=== PATIENT | male | born 1960 | race Caucasian/White ===

== ENCOUNTER 2017-08-28 13:18 | Inpatient (IN) ==
[2017-08-28] MEDS ORDERED: Sod Chloride 0.9% Inj 1,000 ML IV.CONT SCH (14:00)
[2017-08-28] MEDS ORDERED: Labetalol HCl Inj 100 MG/20 ML Vial IV.PUSH ONE (14:00)
--- NOTE | 2017-08-28 14:11 | CT ---
EXAM DATE: 08/28/2017 2:05 PM EDT AGE/SEX: 57 years / Male INDICATIONS: STROKE ALERT. Left arm numbness. CLINICAL DATA: This is the patient's initial encounter. Patient reports that signs and symptoms have been present for 1 day and indicates a pain score of 0/10. MEDICAL/SURGICAL HISTORY: Hypertension. None. RADIATION DOSE: 37.45 CTDI (mGy) COMPARISON: No prior exams available for comparison. TECHNIQUE: CT of the head without contrast. Using automated exposure control and adjustment of the mA and/or kV according to patient size, radiation dose was kept as low as reasonably achievable to ob tain optimal diagnostic quality images. DICOM format image data is available electronically for revi ew and comparison. FINDINGS: Cerebrum: The ventricles are normal for age. No evidence of midline shift, mass lesion, hemorrhage or acute infarction. There is a focal low-attenuation area in right internal capsule region axial drea ge #19. There is a sellar low-attenuation area in the left internal capsule region on image #17. No e xtraaxial fluid collections are seen. Posterior Fossa: The cerebellum and brainstem are intact. The 4th ventricle is midline. The cerebe llopontine angle is unremarkable. Extracranial: The visualized portion of the orbits is intact. Skull: The calvaria is intact. No evidence of skull fracture. CONCLUSION: 1. No acute hemorrhage or mass effect. 2. Low attenuation areas which may represent areas of prior lacunar infarction or chronic small vess el ischemic change. Report was called by [Dr. Pineda to Dr. Ely at 1409 hours. ] Electronically signed by: Taurus Pineda MD 08/28/2017 2:10 PM EDT
[2017-08-28 14:22] LABS: Baso % (Auto) 0.6 % (0.0-2.0); Eos # (Auto) 0.1 th/mm3 (0.0-0.4); Eos % (Auto) 1.1 % (0.0-4.0); Hematocrit 44.4 % (39.0-51.0); Hemoglobin 15.5 gm/dL (13.0-17.0); Lymph # (Auto) 1.9 th/mm3 (1.0-4.8); Lymph % (Auto) 26.2 % (9.0-44.0); Mean Corpuscular HGB Conc 34.9 % (32.0-36.0); Mean Corpuscular Volume 94.4 fL (80.0-100.0); Mean Platelet Volume 8.5 fL (7.0-11.0); Mono # (Auto) 0.5 th/mm3 (0.0-0.9); Mono % (Auto) 7.3 % (0.0-8.0); Neut # (Auto) 4.6 th/mm3 (1.8-7.7); Neut % (Auto) 64.8 % (16.0-70.0); Platelet Count 290 th/mm3 (150-450); Red Cell Distribution Width 13.3 % (11.6-17.2); White Blood Count 7.2 th/mm3 (4.0-11.0)
[2017-08-28 14:29] LABS: Activated Partial Thrombo Time 26.8 sec (24.3-30.1); Prothrombin Time 10.1 sec (9.8-11.6)
--- NOTE | 2017-08-28 14:32 | CT ---
EXAM DATE: 08/28/2017 2:24 PM EDT AGE/SEX: 57 years / Male INDICATIONS: STROKE ALERT. Left side numbness. CLINICAL DATA: This is the patient's initial encounter. Patient reports that signs and symptoms have been present for 1 day and indicates a pain score of 0/10. MEDICAL/SURGICAL HISTORY: None. None. RADIATION DOSE: 28.60 CTDI (mGy) COMPARISON: [facility] [place], CT HEAD W/O CONTRAST, 08/28/2017. . TECHNIQUE: Volumetric scanning was performed using a multi-row detector CT scanner during bolus infu juany of 97 ml Visipaque 320 (iodixanol) nonionic water-soluble contrast as a single exam dose. The data was post processed with a variety of visualization algorithms including full volume maximum int ensity projection, multi-planar sliding thin slab reformation, curved planar reformation, and surface rendering techniques. Using automated exposure control and adjustment of the mA and/or kV according to patient size, radiation dose was kept as low as reasonably achievable to obtain optimal diagnosti c quality images. DICOM format image data is available electronically for review and comparison. FINDINGS: There is excellent visualization of the major intracranial arteries out to the second-order branch ve ssels. There is no evidence for aneurysm, vessel truncation or stenosis, and no evidence for vascula r malformation. CONCLUSION: 1. Negative study with no evidence of stenosis or occlusion. Electronically signed by: Taurus Pineda MD 08/28/2017 2:30 PM EDT
--- NOTE | 2017-08-28 14:32 | ED ---
HPI General Chief Complaint: Neuro Symptoms/Deficit Stated Complaint: Left Shoulder pain Time Seen by Provider: 08/28/17 13:56 Source: patient Mode of arrival: ambulatory Limitations: no limitations History of Present Illness HPI Narrative: Patient is a 57-year-old male, past medical history significant for hypertension but is not on any medicines, who presents with complaint of left arm numbness and tingling that began suddenly at approximately 1230 today. He states that it has improved since then but is still present. He denies facial droop, speech changes, difficulty swallowing, and weakness of the arms and legs. He does state that he had some difficulty walking at onset but that this has resolved. No vision changes. He denies chest pain, shortness of breath, fever, chills, cough. Onset (ago): hour(s) Time: 12:29 Location: left arm History of same: No Severity: moderate Quality: numb and tingling Relieving factors: time Exacerbating factors: none Context: sudden onset On Anticoagulants: No Associated symptoms: denies other symptoms Treatments Prior to Arrival: none Related Data Home Medications Medication Instructions Recorded Confirmed No Known Home Medications 08/28/17 08/28/17 Allergies Allergy/AdvReac Type Severity Reaction Status Date / Time No Known Allergies Allergy Unverified 08/28/17 13:56 Review of Systems Except as stated in HPI: all other systems reviewed are negative Constitutional Denies fever(s) Eyes Denies blurry vision ENT Denies change in voice and Denies dysphagia Cardiovascular Denies chest pain Respiratory Denies dyspnea Gastrointestinal Denies abdominal pain Genitourinary Denies dysuria Musculoskeletal Denies back pain Integumentary/Breasts Denies rash Neurologic Denies confusion, Denies frequent falls, Denies headache(s), Denies focal weakness, Denies loss of vision, Reports numbness and Reports tingling Psychiatric Reports anxiety PMFSH Medical History Medical History Patient denies medical problems (Acute) Surgical History Surgical History S/P LASIK surgery of both eyes (Acute) Social History Social History Substance History: No History of Abuse Smoking Status: Current some day smoker Tobacco Type: Cigars How Often Do You Have a Drink Containing Alcohol: 4 or more times a week Recent Travel in [email or web address] within the Last 8 Weeks: No Recent Out of Country Travel within the Last 8 Weeks: No Immunization History Tetanus Immunization: <5 Years Hx Influenza Vaccine This Season: Yes Exam Narrative Exam Narrative: GENERAL: Well-appearing male, no acute distress SKIN: Focused skin assessment warm/dry. HEAD: Atraumatic. Normocephalic. EYES: Pupils equal and round. No scleral icterus. No injection or drainage. ENT: No nasal bleeding or discharge. Mucous membranes pink and moist. NECK: Trachea midline. No JVD. CARDIOVASCULAR: Regular rate and rhythm. No murmur appreciated. RESPIRATORY: No accessory muscle use. Clear to auscultation. Breath sounds equal bilaterally. GASTROINTESTINAL: Abdomen soft, non-tender, nondistended. Hepatic and splenic margins not palpable. MUSCULOSKELETAL: No obvious deformities. No clubbing. No cyanosis. No edema. NEUROLOGICAL: Awake and alert. No facial droop. No obvious cranial nerve deficits. Motor grossly normal limits. Normal speech. Normal gait. No ataxia. States numbness of the left upper extremity when compared to the right but no other changes in sensation. PSYCHIATRIC: Appropriate mood and affect; insight and judgment normal. Course Hospital Course: Patient was placed on a school lunch monitor an IV was established. Last known well was approximately 1.5 hours prior to being seen thus a stroke alert is called. Reevaluation(s) Reevaluation #1: Patient has returned from CT and states that the numbness in his fingertips continues to improve. Time: 14:32 Consultations Consultation #1: I spoke to Dr. Johnson of neurology recommended CTAs. CTA is unremarkable as he recommended admission to the hospitalist for MRI and further TIA workup. Initial Documented Vital Signs Temperature 98.6 F 08/28/17 13:23 Pulse Rate 98 H 08/28/17 13:23 Respiratory Rate 18 08/28/17 13:23 Blood Pressure 186/114 H 08/28/17 13:23 Pulse Oximetry 99 08/28/17 13:23 Last Documented Vital Signs Temperature 98.6 F 08/28/17 13:23 Pulse Rate 82 08/28/17 13:45 Respiratory Rate 22 08/28/17 13:44 Blood Pressure 202/121 H 08/28/17 13:44 Pulse Oximetry 98 08/28/17 13:56 Critical Care Time Critical Care Time: Yes Total Critical Care Time: 30 Attestation: Aggregate critical care time was 30 minutes. Time to perform other separately billable procedures was not included in the critical care time. My time did not include minutes spent treating any other patients simultaneously or on activities that did not directly contribute to the patient's treatment. The services I provided to this patient were to treat and/or prevent clinically significant deterioration that could result in: , disability. I provided critical care services requiring my management, as noted below: Chart data review, documentation time, medication orders and management, vital sign assessments/reviewing monitor data, ordering and reviewing lab tests, ordering and interpreting/reviewing x-rays and diagnostic studies, care of the patient and discussion of the patient with the admitting physicians. NIH Stroke Scale NIH Stroke Scale Level of Consciousness: 0-Alert Orientation Questions: 0-Answers both correct Responds to Commands: 0-Both tasks correct Gaze Eye Movement: 0-Horizontal movement WNL Visual Guzmna: 0-No visual field defect Facial Movement: 0-Normal Motor Functions Arm LEFT: 0-No drift Motor Functions Arm RIGHT: 0-No drift Motor Functions Leg LEFT: 0-No drift Motor Functions Leg RIGHT: 0-No drift Limb Ataxia: 0-No ataxia Total: 0 Medical Decision Making MDM Narrative Medical decision making narrative: 7-year-old male who presents with complaint of numbness of the left upper extremity that began suddenly approximately 1.5 hours prior to arrival. Aldair liquid was activated on his arrival and noncontrast CT of his head did not reveal acute hemorrhage. His NIH stroke scale was only 1 and his symptoms were continuously improving thus it was decided that he should not receive TPA, as decided between the patient, myself, and Dr. Johnson, the neurologist prepared foods production team member. He was admitted to the hospitalist for an MRI and further workup for likely TIA. Differential Diagnosis Differential Diagnosis: Differential diagnosis includes but is not limited to acute cerebrovascular accident, transient ischemic attack, radiculopathy, anxiety. Medical Records Medical records reviewed: Yes I reviewed the patient's medical records. Lab Data Lab results reviewed: Yes I reviewed the patient's lab results. Lab results narrative: Labs reveal mild hypokalemia but otherwise unremarkable. Result diagrams: 08/28/17 14:02 08/28/17 14:02 Lab Results 08/28/17 08/28/17 08/28/17 Range/Units 14:02 14:02 14:02 WBC 7.2 (4.0-11.0) th/mm3 RBC 4.70 (4.50-5.90) mil/mm3 Hgb 15.5 (13.0-17.0) gm/dL POC Hgb (Calc) 14.6 (13.0-17.0) g/dL Hct 44.4 (39.0-51.0) % POC Hct 43.0 (39-51.0) % MCV 94.4 (80.0-100.0) fL MCH 33.0 (27.0-34.0) pg MCHC 34.9 (32.0-36.0) % RDW 13.3 (11.6-17.2) % Plt Count 290 (150-450) th/mm3 MPV 8.5 (7.0-11.0) fL Neut % (Auto) 64.8 (16.0-70.0) % Lymph % (Auto) 26.2 (9.0-44.0) % [place] % (Auto) 7.3 (0.0-8.0) % Eos % (Auto) 1.1 (0.0-4.0) % Baso % (Auto) 0.6 (0.0-2.0) % Neut # (Auto) 4.6 (1.8-7.7) th/mm3 Lymph # (Auto) 1.9 (1.0-4.8) th/mm3 [place] # (Auto) 0.5 (0.0-0.9) th/mm3 Eos # (Auto) 0.1 (0.0-0.4) th/mm3 Baso # (Auto) 0.0 (0.0-0.2) th/mm3 WBC Differential . Differential Comment Auto diff final PT 10.1 (9.8-11.6) sec INR 1.0 Ratio APTT 26.8 (24.3-30.1) sec POC Sodium 141 (137-144) mmol/L Sodium 141 (136-145) meq/L POC Potassium 3.4 L (3.6-5.0) mmol/L Potassium 3.4 L (3.5-5.1) meq/L POC Chloride 104 (102-111) mmol/L Chloride 108 H (98-107) meq/L Carbon Dioxide 25.8 (21.0-32.0) meq/L Anion Gap 7 (5-15) meq/L POC BUN 12 (5-21) mg/dL BUN 13 (7-18) mg/dL Creatinine 1.16 (0.60-1.30) mg/dL POC Creatinine 1.0 (0.6-1.3) mg/dL Estimated GFR 65 L (>89) mL/min POC Glucose 115 H (68-110) mg/dL Random Glucose 115 H (74-106) mg/dL Calcium 9.3 (8.5-10.1) mg/dL Total Creatine Kinase 183 (39-308) U/L CK-MB (CK-2) 1.0 (0.5-3.6) ng/mL Troponin I Less than 0.02 L (0.02-0.05) ng/mL Blood Type Blood Type Recheck Antibody Screen 08/28/17 08/28/17 Range/Units 14:02 14:37 WBC (4.0-11.0) th/mm3 RBC (4.50-5.90) mil/mm3 Hgb (13.0-17.0) gm/dL POC Hgb (Calc) (13.0-17.0) g/dL Hct (39.0-51.0) % POC Hct (39-51.0) % MCV (80.0-100.0) fL MCH (27.0-34.0) pg MCHC (32.0-36.0) % RDW (11.6-17.2) % Plt Count (150-450) th/mm3 MPV (7.0-11.0) fL Neut % (Auto) (16.0-70.0) % Lymph % (Auto) (9.0-44.0) % [place] % (Auto) (0.0-8.0) % Eos % (Auto) (0.0-4.0) % Baso % (Auto) (0.0-2.0) % Neut # (Auto) (1.8-7.7) th/mm3 Lymph # (Auto) (1.0-4.8) th/mm3 [place] # (Auto) (0.0-0.9) th/mm3 Eos # (Auto) (0.0-0.4) th/mm3 Baso # (Auto) (0.0-0.2) th/mm3 WBC Differential Differential Comment PT (9.8-11.6) sec INR Ratio APTT (24.3-30.1) sec POC Sodium (137-144) mmol/L Sodium (136-145) meq/L POC Potassium (3.6-5.0) mmol/L Potassium (3.5-5.1) meq/L POC Chloride (102-111) mmol/L Chloride (98-107) meq/L Carbon Dioxide (21.0-32.0) meq/L Anion Gap (5-15) meq/L POC BUN (5-21) mg/dL BUN (7-18) mg/dL Creatinine (0.60-1.30) mg/dL POC Creatinine (0.6-1.3) mg/dL Estimated GFR (>89) mL/min POC Glucose 100 (68-110) mg/dL Random Glucose (74-106) mg/dL Calcium (8.5-10.1) mg/dL Total Creatine Kinase (39-308) U/L CK-MB (CK-2) (0.5-3.6) ng/mL Troponin I (0.02-0.05) ng/mL Blood Type O Positive Blood Type Recheck Required Antibody Screen Negative Imaging Data Attestation: I personally reviewed and interpreted this imaging study as follows : My impression: Chest x-ray without acute cardiopulmonary process. CT head without large hemorrhage or mass-effect. Radiologist's impression: Head MRI 08/28/17 00:00 CONCLUSION: 1. Old tiny 3 mm focus of apparent restricted diffusion in the deep white matter of the left frontal lobe of concern for a small acute to subacute area of lacunar infarction. 2. Small old lacunar infarct in the deep white matter of the right parietal lobe. 3. Nonspecific white matter findings which could be related to chronic small vessel ischemic change. Chest X-Ray 08/28/17 13:56 CONCLUSION: Negative examination. Head CT 08/28/17 13:56 CONCLUSION: 1. No acute hemorrhage or mass effect. 2. Low attenuation areas which may represent areas of prior lacunar infarction or chronic small vessel ischemic change. Report was called by [Dr. Pineda to Dr. Ely at 1409 hours. ] Head CTA 08/28/17 13:56 CONCLUSION: 1. Negative study with no evidence of stenosis or occlusion. Neck CTA 08/28/17 13:56 CONCLUSION: 1. Mild bilateral plaquing in the carotid bulbs greater than right with less than 40% diameter stenosis. ECG Data EKG Prior to Arrival: No Attestation: I personally reviewed and interpreted this ECG as follows: (Sinus rhythm at a rate of 80 bpm. There is slight ST depression in lead II, lead V4 through V6.) Discharge Plan Discharge Disposition Patient Disposition: 30 Still Patient Discharge Condition Condition: Stable Discharge Details Diagnosis: Transient cerebral ischemia Physicians Team ED Provider: Erum Ely Primary Care Provider: UNKNOWN, Attending Provider: Jesse Stovall Other Providers: Andrew Johnson ED Status: Admitted Patient
[2017-08-28 14:36] LABS: Anion Gap 7 meq/L (5-15); Blood Urea Nitrogen 13 mg/dL (7-18); Calcium 9.3 mg/dL (8.5-10.1); Carbon Dioxide 25.8 meq/L (21.0-32.0); Chloride 108 meq/L (98-107); Glomerular Filtration Rate 65 mL/min (>89); Glucose,Random 115 mg/dL (74-106); Potassium 3.4 meq/L (3.5-5.1); Sodium 141 meq/L (136-145)
[2017-08-28 14:39] LABS: Creatine Kinase 183 U/L (39-308)
--- NOTE | 2017-08-28 15:11 | XR ---
EXAM DATE: 08/28/2017 2:59 PM EDT AGE/SEX: 57 years / Male INDICATIONS: . Stroke alert. Left sided numbness. CLINICAL DATA: This is the patient's initial encounter. Patient reports that signs and symptoms have been present for 1 day and indicates a pain score of 2/10. MEDICAL/SURGICAL HISTORY: None. None. COMPARISON: No prior exams available for comparison. FINDINGS: AP and lateral views of the chest demonstrate the lungs to be symmetrically aerated without evidence of mass, infiltrate or effusion. The cardiomediastinal contours are unremarkable. Osseous structure s are intact. CONCLUSION: Negative examination. Electronically signed by: Figueroa Mendez MD 08/28/2017 3:10 PM EDT
--- NOTE | 2017-08-28 15:13 | CT ---
EXAM DATE: 08/28/2017 2:35 PM EDT AGE/SEX: 57 years / Male INDICATIONS: STROKE ALERT. Left side numbness. CLINICAL DATA: This is the patient's initial encounter. Patient reports that signs and symptoms have been present for 1 day and indicates a pain score of 0/10. MEDICAL/SURGICAL HISTORY: None. None. RADIATION DOSE: 28.60 CTDI (mGy) COMPARISON: No prior exams available for comparison. TECHNIQUE: Volumetric scanning was performed using a multirow detector CT scanner during bolus infus ion of 97 ml Visipaque 320 (iodixanol) nonionic water-soluble contrast as a single exam dose. The data was postprocessed with a variety of visualization algorithms including full-volume maximum inten sity projection, multiplanar sliding thin-slab reformation, curved-planar reformation, and surface-re ndering techniques. Using automated exposure control and adjustment of the mA and/or kV according to patient size, radiation dose was kept as low as reasonably achievable to obtain optimal diagnostic q uality images. DICOM format image data is available electronically for review and comparison. FINDINGS: Aortic Arch: There is a three-vessel origin of the great vessels from the aorta. No evidence of ost ial narrowing Right Carotid: The common carotid artery is intact. The carotid bulb has a normal configuration wit h mild noncalcified and calcified plaque calcific plaque. There is minimal luminal narrowing. The int ernal carotid artery lumen is smooth without stenosis. The external carotid artery is intact. Left Carotid: The common carotid artery is intact. The carotid bulb has a normal configuration with mild to moderate calcific plaquing and mild luminal narrowing in the bulb and proximal internal ramirez tid artery. The internal carotid artery lumen is smooth without stenosis. The external carotid arter y is intact. Vertebrals: The vertebral arteries have a symmetric diameter. No stenotic lesions are seen. Elevated flow velocities and ICA/CCA ratios have been found to correlate with increased degrees of ve ssel stenosis, calculated as percentage of diameter relative to a normal segment of distal ICA/CCA. CONCLUSION: 1. Mild bilateral plaquing in the carotid bulbs greater than right with less than 40% diameter steno sis. Electronically signed by: Tuarus Pineda MD 08/28/2017 3:12 PM EDT
[2017-08-28] MEDS ORDERED: Temazepam 15 MG Capsule PO PRN (15:52)
--- NOTE | 2017-08-28 15:55 | MB ---
cc: Andrew Johnson MD DATE: 08/28/2017 HISTORY OF PRESENT ILLNESS: This is a 57-year-old right-handed man with hypertension. He otherwise has been very healthy and today he was going to training and he had the sudden onset of numbness in the left arm and hand, no weakness or clumsiness. No involvement of the face or leg. No vision change, chest pain, palpitations, nor headache. It seems to have gotten a little bit better. He has never had anything similar. He has been taking 325 aspirin every day for the last week due to some low back pain. 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 REVIEW OF SYSTEMS: Denies any diabetes, hypercholesterolemia, VT, stent, angioplasty, AFib, Coumadin, CABG, renal, hepatic or pulmonary disease, thyroid disease, lupus, ulcer, cancer, seizure, stroke. SOCIAL HISTORY: Nonsmoker. Does have drinks about 5 days a week, maybe 3-4. Lives with his . FAMILY HISTORY: Negative for cancer, seizure. Positive for aneurysm in his father. PHYSICAL EXAMINATION: VITAL SIGNS: He is in sinus rhythm. Blood pressure initially was about 210/110. He was given some labetalol 80. NECK: There are no carotid bruits. HEART: Regular rhythm. I do not detect a murmur. NEUROLOGIC: Pupils are equal. Visual estrada are full. Extraocular movements intact without nystagmus. Face is symmetric with normal sensation. Tongue was midline. There is no drift. He had normal strength in upper and lower extremities bilaterally. Fast finger movements may be just a little clumsy on the left side. His left finger tapping is a little bit slow on the right, although he is right-handed. Otherwise, strength is normal in the upper and lower extremities bilaterally. DTRs are trace throughout. Toes downgoing bilaterally. Pinprick is intact throughout, except for mild decreased patchy areas about the left upper extremity. Median and ulnar nerve distribution was symmetrical on the left hand. He is not ataxic on [id number]. Speech is fluent. He is not aphasic. No apparent distress. LABORATORY DATA: CBC is normal. Coags are normal. Potassium is 3.4, otherwise his BMP is normal. Glucose 100. Calcium, CPK, troponin all negative. IMAGING STUDIES: He had a head CT of the brain. Possible white matter changes. On the right side a low attenuation region in the internal capsule, one in the left on review of the films. The ventricles are asymmetrical with the left ventricle being larger than the right, likely chronic. There is what appears to be old stroke on the left side and the right side, the right side looks more lacunar or could be a Kelly's finger would be another possibility. CTA of the [place] was normal. CT of the neck and [place] were normal. IMPRESSION: Possibly a stroke, multiple sclerosis could be considered also. RECOMMENDATIONS: We will check an MRI of the brain and MRI of the cervical spine as all his symptoms are below the neck and echocardiogram, hypercoags, some additional blood work. Keep his head of bed flat, IV hydration. Lacunar infarct could be considered. Holter monitor will be ordered. NIH stroke scale just being a 1. MD CHINMAY Abarca/EWA , 03:29 PM , 03:54 PM
--- NOTE | 2017-08-28 16:31 | MR ---
EXAM DATE: 08/28/2017 4:23 PM EDT AGE/SEX: 57 years / Male INDICATIONS: Stroke alert. Left sided weakness. CLINICAL DATA: This is the patient's initial encounter. Patient reports that signs and symptoms have been present for 1 day and indicates a pain score of 0/10. MEDICAL/SURGICAL HISTORY: Hypertension. . Cataract surgery. COMPARISON: [facility] – [place], CT HEAD W/O CONTRAST, 08/28/2017. . TECHNIQUE: Multiplanar, multisequence examination of the brain was performed without and with 9 ml Ga davist (gadobutrol) contrast as a single exam dose. FINDINGS: Cerebrum: The ventricles are normal for age. No evidence of midline shift, mass lesion, hemorrhage or acute infarction. No extraaxial fluid collections are seen. The pituitary gland and suprasellar cistern are normal in configuration. White Matter: On the FLAIR weighted images there is a small lacunar infarct in the deep white matter of the right parietal lobe. There are also foci of nonspecific increased signal in the left basal ga nglia and periventricular white matter. Posterior Fossa: The cerebellum and brainstem are intact. The 4th ventricle is midline. The cerebel lopontine angle is unremarkable. The cerebellar tonsils are normal in position. Diffusion Imaging: On the thecal planar weighted images there is a single tiny punctate foci of rest ricted diffusion in the deep white matter of the right frontal lobe on axial image #18. This measures approximately 3 mm in greatest diameter. Extracranial: The visualized portions of the orbits and paranasal sinuses are unremarkable. Post Contrast: No abnormal areas of parenchymal or dural enhancement. No evidence of blood-brain ba rrier breakdown. CONCLUSION: 1. Old tiny 3 mm focus of apparent restricted diffusion in the deep white matter of the left frontal lobe of concern for a small acute to subacute area of lacunar infarction. 2. Small old lacunar infarct in the deep white matter of the right parietal lobe. 3. Nonspecific white matter findings which could be related to chronic small vessel ischemic change. Electronically signed by: Taurus Pineda MD 08/28/2017 4:30 PM EDT
--- NOTE | 2017-08-28 16:36 | MR ---
EXAM DATE: 08/28/2017 4:27 PM EDT AGE/SEX: 57 years / Male INDICATIONS: Myelopathy. Left sided weakness. CLINICAL DATA: This is the patient's initial encounter. Patient reports that signs and symptoms have been present for 1 day and indicates a pain score of 0/10. MEDICAL/SURGICAL HISTORY: Hypertension. . Lens surgery. COMPARISON: No prior exams available for comparison. TECHNIQUE: Multiplanar, multisequence MRI examination of the cervical spine was performed without an d with 9 ml Gadavist (gadobutrol) contrast as a single exam dose. FINDINGS: Vertebrae: Normal vertebral body height. Modic type changes are noted in the endplates at the C5-6 a nd C6-7 levels. There is no discogenic edema.. Alignment: Normal. Cord: Normal configuration and signal. Post Fossa: The cerebellar tonsils are normal in position. Post Contrast: No abnormal areas of enhancement are seen. C2-C3: The thecal sac has a normal configuration. There is no evidence of disc herniation or spinal canal stenosis. The neural foramina are patent bilaterally. C3-C4: The thecal sac has a normal configuration. There is no evidence of disc herniation or spinal canal stenosis. The neural foramina are patent bilaterally. C4-C5: The thecal sac has a normal configuration. There is no evidence of disc herniation or spinal canal stenosis. The neural foramina are patent bilaterally. C5-C6: There is a mild annular disc bulge with mild flattening of the anterior thecal sac and no mas s effect upon the cord. The neural foramina are patent bilaterally. C6-C7: There is a mild annular disc bulge with mild flattening of the anterior thecal and no mass ef fect upon the cord. The neural foramina are patent. C7-T1: No epidural impressions seen. CONCLUSION: 1. Mild disc bulges at C5-6 and C6-7 with mild flattening of the anterior thecal sac and no mass eff ect on the cord. 2. The cervical cord is unremarkable in appearance with no abnormal signal or enhancement. Electronically signed by: Taurus Pineda MD 08/28/2017 4:35 PM EDT
--- NOTE | 2017-08-28 17:11 | P.HPIM ---
History of Present Illness Primary Care Physician: UNKNOWN History of Present Illness: Mr. Chicas is a 57 year old male. He came to the ER today with symptoms of left arm numbness and tingling which starts about at his left mid-arm proximally to his fingers distally. He has no prior history of known TIA or CVA. His family history is positive for HI in his father. He is not an active smoker, but occasionally will smoke a cigar. He drinks 2-4 drinks of alcohol daily. 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 He had a febrile illness for 24-48 hours about a week ago. No other complaints. When seen, his symptoms are nearly resolved. Inpatient Certification: I certify that the inpatient services were ordered in accordance with Medicare regulations governing the order. This includes certification that hospital inpatient services are reasonable and necessary and in the case of services not specified as inpatient-only under 42 CFR 419.22(n), that they are appropriately provided as inpatient services in accordance to with the 2-midnight benchmark under 43 CFR 412.3(e) Review of Systems Constitutional: Denies chills, Denies fever(s), Denies weakness Eyes: Denies blind spots, Denies blurry vision, Denies bulging eyes, Denies change in vision Ears, Nose, Mouth, and Throat: Denies abnormal hearing, Denies bleeding gums, Denies facial pain, Denies nasal obstruction Cardiovascular: Denies chest pain, Denies chest pain at rest, Denies chest pain with activity, Denies excessive sweating Gastrointestinal: Denies abdominal pain, Denies black, tarry stools, Denies bloating, Denies bright, red blood in stools Musculoskeletal: Denies abnormal walking, Denies back pain, Denies body aches, Denies deformity Skin/Breast: Denies rash, Denies skin pain, Denies skin ulcer, Denies sores Neurologic: Reports numbness, Denies abnormal hearing, Denies abnormal movements , Denies abnormal speech Psychiatric: Denies abnormal sleep pattern, Denies anxiety, Denies behavioral changes, Denies change in appetite PMFSH - History History Provided By: Patient - Medical History Medical History: Medical History (Last Reviewed 08/28/17 @ 16:38 by Erum Ely MD) Patient denies medical problems - Surgical History Surgical History: Surgical History (Last Reviewed 08/28/17 @ 16:38 by Erum Ely MD) S/P LASIK surgery of both eyes - Family History Family History: Family History (Last Updated 08/28/17 @ 17:08 by Jesse Stovall MD) Father Myocardial infarction - Tobacco History Tobacco Use In Past 30 Days: No Smoking Status: Current some day smoker Tobacco Type: Cigars - Alcohol History How Often Do You Have a Drink Containing Alcohol: 4 or more times a week - Substance Use History Substance History: No History of Abuse - Travel History Recent Travel in the [place] Within the Last 8 Weeks: No Recent Travel Out of the Country Within the Last 8 Weeks: No - Immunization History Tetanus Immunization: <5 Years Hx Influenza Vaccine This Season: Yes Medications and Allergies Active Medications: Active Medications Aspirin (Aspirin) 325 mg PO DAILY [facility] Clopidogrel Bisulfate (Plavix) 75 mg PO DAILY [facility] Sodium Chloride (Ns Inj) 1,000 mls @ 70 mls/hr IV.CONT .[id number] LANIE Stop: 08/29/17 04:17 Sodium Chloride (Ns Flush) 2 ml IV.FLUSH PRN PRN PRN Reason: FLUSH AFTER USING IV ACCESS Temazepam (Restoril) 15 mg PO HS PRN PRN Reason: INSOMNIA Allergies Allergy/AdvReac Type Severity Reaction Status Date / Time No Known Allergies Allergy Unverified 08/28/17 13:56 Home Medications Medication Instructions Recorded Confirmed Type No Known Home Medications 08/28/17 08/28/17 History Exam Vital signs: Vital Signs 08/28/17 13:23 08/28/17 13:44 08/28/17 13:45 Temperature 98.6 F Pulse Rate 98 H 81 82 Respiratory Rate 18 22 Blood Pressure 186/114 H 202/121 H Pulse Oximetry 99 96 08/28/17 13:56 Temperature Pulse Rate Respiratory Rate Blood Pressure Pulse Oximetry 98 Intake & Output 08/27/17 08/28/17 08/28/17 18:59 06:59 18:59 Weight 97.8 kg Narrative: GENERAL: NAD, A&Ox3 HEAD: Normocephalic. NECK: Supple, trachea midline. No lymphadenopathy. EYES: No scleral icterus. No injection or drainage. CARDIOVASCULAR: Regular rate and rhythm without murmurs, gallops, or rubs. RESPIRATORY: Breath sounds equal bilaterally. No accessory muscle use. GASTROINTESTINAL: Abdomen soft, non-tender, nondistended. MUSCULOSKELETAL: No cyanosis, or edema. SKIN: Warm and dry. NEURO: Mild numbness to touch/palpation at left arm. Results - Labs CBC & Chem 7: 08/28/17 14:02 08/28/17 14:02 Labs: Short CBC 08/28/17 Range/Units 14:02 WBC 7.2 (4.0-11.0) th/mm3 Hgb 15.5 (13.0-17.0) gm/dL Hct 44.4 (39.0-51.0) % Plt Count 290 (150-450) th/mm3 BMP 08/28/17 14:02 Sodium 141 Potassium 3.4 L Chloride 108 H Carbon Dioxide 25.8 BUN 13 Creatinine 1.16 Calcium 9.3 Cardiac Enzymes 08/28/17 Range/Units 14:02 Total Creatine Kinase 183 (39-308) U/L CK-MB (CK-2) 1.0 (0.5-3.6) ng/mL Troponin I Less than 0.02 L (0.02-0.05) ng/mL - Imaging Impressions Cervical Spine MRI 08/28/17 00:00 CONCLUSION: 1. Mild disc bulges at C5-6 and C6-7 with mild flattening of the anterior thecal sac and no mass effect on the cord. 2. The cervical cord is unremarkable in appearance with no abnormal signal or enhancement. Head MRI 08/28/17 00:00 CONCLUSION: 1. Old tiny 3 mm focus of apparent restricted diffusion in the deep white matter of the left frontal lobe of concern for a small acute to subacute area of lacunar infarction. 2. Small old lacunar infarct in the deep white matter of the right parietal lobe. 3. Nonspecific white matter findings which could be related to chronic small vessel ischemic change. Chest X-Ray 08/28/17 13:56 CONCLUSION: Negative examination. Head CT 08/28/17 13:56 CONCLUSION: 1. No acute hemorrhage or mass effect. 2. Low attenuation areas which may represent areas of prior lacunar infarction or chronic small vessel ischemic change. Report was called by [Dr. Pineda to Dr. Ely at 1409 hours. ] Head CTA 08/28/17 13:56 CONCLUSION: 1. Negative study with no evidence of stenosis or occlusion. Neck CTA 08/28/17 13:56 CONCLUSION: 1. Mild bilateral plaquing in the carotid bulbs greater than right with less than 40% diameter stenosis. Caprini VTE Risk Assessment Caprini VTE Risk Assessment: No/Low Risk (score <= 1) Caprini Risk Assessment Model: Point Value = 1 Point Value = 2 Point Value = 3 Point Value = 5 Age 41-60 Minor surgery BMI > 25 kg/m2 Swollen legs Varicose veins or History of unexplained or recurrent spontaneous Oral contraceptives or hormone replacement Sepsis (< 1 month) Serious lung disease, including pneumonia (< 1 month) Abnormal pulmonary function Acute myocardial infarction Congestive heart failure (< 1 month) History of inflammatory bowel disease Medical patient at bed rest Age 61-74 Arthroscopic surgery Major open surgery (> 45 min) Laparoscopic surgery (> 45 min) Malignancy Confined to bed (> 72 hours) Immobilizing plaster cast Central venous access Age >= 75 History of VTE Family history of VTE Factor V Leiden Prothrombin [id number] Lupus anticoagulant Anticardiolipin antibodies Elevated serum homocysteine Heparin-induced thrombocytopenia Other congenital or acquired thrombophilia Stroke (< 1 month) Elective arthroplasty Hip, pelvis, or leg fracture Acute spinal cord injury (< 1 month) Prophylaxis Regimen: Total Risk Factor Score Risk Level Prophylaxis Regimen 0-1 Low Early ambulation 2 Moderate Order ONE of the following: *Sequential Compression Device (SCD) *Heparin 5000 units SQ BID 3-4 Higher Order ONE of the following medications: *Heparin 5000 units SQ TID *Enoxaparin/Lovenox 40 mg SQ daily (WT < 150 kg, CrCl > 30 mL/min) *Enoxaparin/Lovenox 30 mg SQ daily (WT < 150 kg, CrCl > 10-29 mL/min) *Enoxaparin/Lovenox 30 mg SQ BID (WT < 150 kg, CrCl > 30 mL/min) AND/OR *Sequential Compression Device (SCD) 5 or more Highest Order ONE of the following medications: *Heparin 5000 units SQ TID (Preferred with Epidurals) *Enoxaparin/Lovenox 40 mg SQ daily (WT < 150 kg, CrCl > 30 mL/min) *Enoxaparin/Lovenox 30 mg SQ daily (WT < 150 kg, CrCl > 10-29 mL/min) *Enoxaparin/Lovenox 30 mg SQ BID (WT < 150 kg, CrCl > 30 mL/min) AND *Sequential Compression Device (SCD) Assessment and Plan - Plan 57 year old male admitted with right sided numbness of the arm and forearm and hand. Right sided arm numbness TIA vs. CVA MRI brain Bilateral Carotic Ultrasound Follow symptoms Neurochecks [place] BPs Neurology consulted Daily aspirin DVT Prophylaxis SCDs
[2017-08-28] MEDS ORDERED: Gadobutrol PF 7.5 MMOL/7.5 ML Vial (for RAD) IV.SIG ONE (18:04)
[2017-08-28] MEDS: Aspirin 325 MG Tablet PO SCH (19:43)
[2017-08-28 20:30] LABS: Bilirubin,Urine Negative (Negative); Clarity,Urine Clear (Clear); Color,Urine Yellow (Yellw/Straw); Glucose,Urine (UA) Negative (Negative); Leukocyte Esterase,Urine Negative (Negative); Nitrite,Urine Negative (Negative); Specific Gravity,Urine 1.032 (1.002-1.035); Squamous Epithelial Cell,Urine <1 /hpf (0-5)
[2017-08-29 01:08] LABS: Amphetamine Urine With Conf Neg (Neg); Barbiturate Urine With Conf Neg (Neg); Benzodiazepine Urine With Conf Neg (Neg)
--- NOTE | 2017-08-29 07:56 | P.PNNEU ---
Subjective Subjective Comments: No acute events reported No headache No chest pain No dyspnea Active Medications: Active Medications Aspirin (Aspirin) 325 mg PO DAILY [facility] Last Admin: 08/28/17 19:43 Dose: 325 mg Clopidogrel Bisulfate (Plavix) 75 mg PO DAILY [facility] Last Admin: 08/28/17 19:42 Dose: 75 mg Sodium Chloride (Ns Flush) 2 ml IV.FLUSH PRN PRN PRN Reason: FLUSH AFTER USING IV ACCESS Temazepam (Restoril) 15 mg PO HS PRN PRN Reason: INSOMNIA Allergies/Adverse Reactions: Allergies Allergy/AdvReac Type Severity Reaction Status Date / Time No Known Allergies Allergy Unverified 08/28/17 13:56 Physical Exam Vital signs: Vital Signs 08/28/17 13:23 08/28/17 13:44 08/28/17 13:45 Temperature 98.6 F Pulse Rate 98 H 81 82 Respiratory Rate 18 22 Blood Pressure 186/114 H 202/121 H Pulse Oximetry 99 96 08/28/17 13:56 08/28/17 14:30 08/28/17 19:34 Temperature Pulse Rate 76 76 Respiratory Rate 18 Blood Pressure 189/102 H 180/104 H Pulse Oximetry 98 08/28/17 20:00 08/29/17 00:00 08/29/17 04:00 Temperature 98.5 F 98.7 F 98.6 F Pulse Rate 68 70 65 Respiratory Rate 16 16 17 Blood Pressure 167/105 H 131/89 119/79 Pulse Oximetry 98 98 96 Intake & Output 08/28/17 08/29/17 08/29/17 18:59 06:59 18:59 Weight 94.347 kg Other: # Voids 2 Weight On Admission 94.347 kg Narrative: alert nl speech 5/ lue lle and r side Objective Laboratory Results - last 24 hr 08/28/17 08/28/17 08/28/17 14:02 14:02 14:02 WBC 7.2 RBC 4.70 Hgb 15.5 POC Hgb (Calc) 14.6 Hct 44.4 POC Hct 43.0 MCV 94.4 MCH 33.0 MCHC 34.9 RDW 13.3 Plt Count 290 MPV 8.5 Neut % (Auto) 64.8 Lymph % (Auto) 26.2 [place] % (Auto) 7.3 Eos % (Auto) 1.1 Baso % (Auto) 0.6 Neut # (Auto) 4.6 Lymph # (Auto) 1.9 [place] # (Auto) 0.5 Eos # (Auto) 0.1 Baso # (Auto) 0.0 WBC Differential . Differential Comment Auto diff final ESR PT 10.1 INR 1.0 APTT 26.8 POC Sodium 141 Sodium 141 POC Potassium 3.4 L Potassium 3.4 L POC Chloride 104 Chloride 108 H Carbon Dioxide 25.8 Anion Gap 7 POC BUN 12 BUN 13 Creatinine 1.16 POC Creatinine 1.0 Estimated GFR 65 L POC Glucose 115 H Random Glucose 115 H Calcium 9.3 Total Creatine Kinase 183 CK-MB (CK-2) 1.0 Troponin I Less than 0.02 L TSH 3.730 Urine Color Urine Clarity Urine pH Ur Specific Dane Urine Protein Urine Glucose (UA) Urine Ketones Urine Occult Blood Urine Nitrate Urine Bilirubin Urine Urobilinogen Ur Leukocyte Esterase Urine RBC Urine WBC Ur Squamous Epith Cells Micro UA Comment Urine Culture Comments Urine Opiates Screen Ur Barbiturates Screen Ur Amphetamine Screen U Benzodiazepines Scrn Urine Cocaine Screen U Cannabinoids Screen Blood Type Blood Type Recheck Antibody Screen 08/28/17 08/28/17 08/28/17 14:02 14:02 14:02 WBC RBC Hgb POC Hgb (Calc) Hct POC Hct MCV MCH MCHC RDW Plt Count MPV Neut % (Auto) Lymph % (Auto) [place] % (Auto) Eos % (Auto) Baso % (Auto) Neut # (Auto) Lymph # (Auto) [place] # (Auto) Eos # (Auto) Baso # (Auto) WBC Differential Differential Comment ESR 17 PT INR APTT POC Sodium Sodium POC Potassium Potassium POC Chloride Chloride Carbon Dioxide Anion Gap POC BUN BUN Creatinine POC Creatinine Estimated GFR POC Glucose Random Glucose Calcium Total Creatine Kinase CK-MB (CK-2) Troponin I TSH Cancelled Urine Color Urine Clarity Urine pH Ur Specific Dane Urine Protein Urine Glucose (UA) Urine Ketones Urine Occult Blood Urine Nitrate Urine Bilirubin Urine Urobilinogen Ur Leukocyte Esterase Urine RBC Urine WBC Ur Squamous Epith Cells Micro UA Comment Urine Culture Comments Urine Opiates Screen Ur Barbiturates Screen Ur Amphetamine Screen U Benzodiazepines Scrn Urine Cocaine Screen U Cannabinoids Screen Blood Type O Positive Blood Type Recheck Required Antibody Screen Negative 08/28/17 08/28/17 08/28/17 14:37 20:05 20:05 WBC RBC Hgb POC Hgb (Calc) Hct POC Hct MCV MCH MCHC RDW Plt Count MPV Neut % (Auto) Lymph % (Auto) [place] % (Auto) Eos % (Auto) Baso % (Auto) Neut # (Auto) Lymph # (Auto) [place] # (Auto) Eos # (Auto) Baso # (Auto) WBC Differential Differential Comment ESR PT INR APTT POC Sodium Sodium POC Potassium Potassium POC Chloride Chloride Carbon Dioxide Anion Gap POC BUN BUN Creatinine POC Creatinine Estimated GFR POC Glucose 100 Random Glucose Calcium Total Creatine Kinase CK-MB (CK-2) Troponin I TSH Urine Color Yellow Urine Clarity Clear Urine pH 6.0 Ur Specific Dane 1.032 Urine Protein Negative Urine Glucose (UA) Negative Urine Ketones Negative Urine Occult Blood Small H Urine Nitrate Negative Urine Bilirubin Negative Urine Urobilinogen Less than 2 Ur Leukocyte Esterase Negative Urine RBC 1 Urine WBC Less than 1 Ur Squamous Epith Cells <1 Micro UA Comment Culture not ind Urine Culture Comments Culture not ind Urine Opiates Screen Neg Ur Barbiturates Screen Neg Ur Amphetamine Screen Neg U Benzodiazepines Scrn Neg Urine Cocaine Screen Neg U Cannabinoids Screen Neg Blood Type Blood Type Recheck Antibody Screen Review/Management - Review/Management Plan: imp left small acute cva on mri and several old small cva 2 on left 1 on right ctax2 neg fu echo have cards see for karin plavix for now dc asa in 3 days fu holter hypercoag and ldl pend
[2017-08-29 08:00] LABS: Baso # (Auto) 0.1 th/mm3 (0.0-0.2); Baso % (Auto) 0.9 % (0.0-2.0); Eos # (Auto) 0.1 th/mm3 (0.0-0.4); Hematocrit 45.4 % (39.0-51.0); Hemoglobin 15.7 gm/dL (13.0-17.0); Lymph % (Auto) 32.1 % (9.0-44.0); Mean Corpuscular HGB Conc 34.6 % (32.0-36.0); Mean Corpuscular Hemoglobin 32.8 pg (27.0-34.0); Mean Corpuscular Volume 94.8 fL (80.0-100.0); Mono # (Auto) 0.4 th/mm3 (0.0-0.9); Mono % (Auto) 6.6 % (0.0-8.0); Neut # (Auto) 3.6 th/mm3 (1.8-7.7); Neut % (Auto) 58.4 % (16.0-70.0); Platelet Count 295 th/mm3 (150-450); Red Blood Count 4.79 mil/mm3 (4.50-5.90); Red Cell Distribution Width 13.3 % (11.6-17.2); White Blood Count 6.2 th/mm3 (4.0-11.0)
[2017-08-29 08:22] LABS: Anion Gap 9 meq/L (5-15); Aspartate Aminotransferase 33 U/L (15-37); Blood Urea Nitrogen 13 mg/dL (7-18); Chloride 103 meq/L (98-107); Glomerular Filtration Rate 63 mL/min (>89); Glucose,Random 104 mg/dL (74-106); Potassium 3.6 meq/L (3.5-5.1); Sodium 139 meq/L (136-145)
[2017-08-29 08:27] LABS: Alanine Aminotransferase 53 U/L (12-78); Alkaline Phosphatase 76 U/L (45-117); Total Protein 8.1 g/dL (6.4-8.2)
[2017-08-29 08:43] LABS: Chol/HDL Ratio 4.36 Ratio; HDL Cholesterol 44.9 mg/dL (40.0-60.0)
--- NOTE | 2017-08-29 09:34 | US ---
EXAM DATE: 08/29/2017 9:01 AM EDT AGE/SEX: 57 years / Male INDICATIONS: Cerebrovascular accident. CLINICAL DATA: This is the patient's initial encounter. Patient reports that signs and symptoms have been present for 1 day and indicates a pain score of 0/10. MEDICAL/SURGICAL HISTORY: Stroke. . [place] eye surgery. COMPARISON: CTA of the neck 08/28/2017. VELOCITY PARAMETERS: ICA/CCA Ratio: Right 1.0 , Left 1.0 ICA: Right 62 cm/sec, Left 69 cm/sec CCA: Right 62 cm/sec, Left 67 cm/sec ECA: Right 69 cm/sec, Left 47 cm/sec Vertebral: Right 52 cm/sec antegrade, Left 53 cm/sec antegrade FINDINGS: Right Carotid: No significant plaque is visualized.The waveforms are within normal limits. Left Carotid: Mild arteriosclerotic plaque is visualized. The waveforms are within normal limits. Other: None. CONCLUSION: Patent carotid arteries bilaterally. Antegrade flow involving both vertebral arteries. Electronically signed by: Agustin De Luna MD 08/29/2017 9:33 AM EDT
--- NOTE | 2017-08-29 10:01 | P.PN ---
Subjective Interval history: F/u CVA. Patient has no complaints. Has been ambulating in the hallway independently. Agrees with statin. Physical Exam Vital signs: Vital Signs 08/28/17 13:23 08/28/17 13:44 08/28/17 13:45 Temperature 98.6 F Pulse Rate 98 H 81 82 Respiratory Rate 18 22 Blood Pressure 186/114 H 202/121 H Pulse Oximetry 99 96 08/28/17 13:56 08/28/17 14:30 08/28/17 19:34 Temperature Pulse Rate 76 76 Respiratory Rate 18 Blood Pressure 189/102 H 180/104 H Pulse Oximetry 98 08/28/17 20:00 08/29/17 00:00 08/29/17 04:00 Temperature 98.5 F 98.7 F 98.6 F Pulse Rate 68 70 65 Respiratory Rate 16 16 17 Blood Pressure 167/105 H 131/89 119/79 Pulse Oximetry 98 98 96 08/29/17 08:00 Temperature 97.9 F Pulse Rate 68 Respiratory Rate 14 Blood Pressure 165/100 H Pulse Oximetry 98 Intake & Output 08/28/17 08/29/17 08/29/17 18:59 06:59 18:59 Weight 94.347 kg Other: # Voids 2 Weight On Admission 94.347 kg Narrative: GENERAL: NAD, A&Ox3 CARDIOVASCULAR: Regular rate and rhythm without murmurs, gallops, or rubs. RESPIRATORY: Breath sounds equal bilaterally. No accessory muscle use. GASTROINTESTINAL: Abdomen soft, non-tender, nondistended. MUSCULOSKELETAL: No cyanosis, or edema. SKIN: Warm and dry. NEURO: Mild numbness to touch/palpation at left arm. Results - Labs CBC & Chem 7: 08/29/17 07:22 08/29/17 07:22 Laboratory Results - last 24 hr 08/28/17 08/28/17 08/28/17 14:02 14:02 14:02 WBC 7.2 RBC 4.70 Hgb 15.5 POC Hgb (Calc) 14.6 Hct 44.4 POC Hct 43.0 MCV 94.4 MCH 33.0 MCHC 34.9 RDW 13.3 Plt Count 290 MPV 8.5 Neut % (Auto) 64.8 Lymph % (Auto) 26.2 [place] % (Auto) 7.3 Eos % (Auto) 1.1 Baso % (Auto) 0.6 Neut # (Auto) 4.6 Lymph # (Auto) 1.9 [place] # (Auto) 0.5 Eos # (Auto) 0.1 Baso # (Auto) 0.0 WBC Differential . Differential Comment Auto diff final ESR PT 10.1 INR 1.0 APTT 26.8 POC Sodium 141 Sodium 141 POC Potassium 3.4 L Potassium 3.4 L POC Chloride 104 Chloride 108 H Carbon Dioxide 25.8 Anion Gap 7 POC BUN 12 BUN 13 Creatinine 1.16 POC Creatinine 1.0 Estimated GFR 65 L POC Glucose 115 H Random Glucose 115 H Calcium 9.3 Total Bilirubin AST ALT Alkaline Phosphatase Total Creatine Kinase 183 CK-MB (CK-2) 1.0 Troponin I Less than 0.02 L Total Protein Albumin Triglycerides Cholesterol LDL Cholesterol, Calc HDL Cholesterol Cholesterol/HDL Ratio TSH 3.730 Urine Color Urine Clarity Urine pH Ur Specific [place] Urine Protein Urine Glucose (UA) Urine Ketones Urine Occult Blood Urine Nitrate Urine Bilirubin Urine Urobilinogen Ur Leukocyte Esterase Urine RBC Urine WBC Ur Squamous Epith Cells Micro UA Comment Urine Culture Comments Urine Opiates Screen Ur Barbiturates Screen Ur Amphetamine Screen U Benzodiazepines Scrn Urine Cocaine Screen U Cannabinoids Screen Blood Type Blood Type Recheck Antibody Screen 08/28/17 08/28/17 08/28/17 14:02 14:02 14:02 WBC RBC Hgb POC Hgb (Calc) Hct POC Hct MCV MCH MCHC RDW Plt Count MPV Neut % (Auto) Lymph % (Auto) [place] % (Auto) Eos % (Auto) Baso % (Auto) Neut # (Auto) Lymph # (Auto) [place] # (Auto) Eos # (Auto) Baso # (Auto) WBC Differential Differential Comment ESR 17 PT INR APTT POC Sodium Sodium POC Potassium Potassium POC Chloride Chloride Carbon Dioxide Anion Gap POC BUN BUN Creatinine POC Creatinine Estimated GFR POC Glucose Random Glucose Calcium Total Bilirubin AST ALT Alkaline Phosphatase Total Creatine Kinase CK-MB (CK-2) Troponin I Total Protein Albumin Triglycerides Cholesterol LDL Cholesterol, Calc HDL Cholesterol Cholesterol/HDL Ratio TSH Cancelled Urine Color Urine Clarity Urine pH Ur Specific [place] Urine Protein Urine Glucose (UA) Urine Ketones Urine Occult Blood Urine Nitrate Urine Bilirubin Urine Urobilinogen Ur Leukocyte Esterase Urine RBC Urine WBC Ur Squamous Epith Cells Micro UA Comment Urine Culture Comments Urine Opiates Screen Ur Barbiturates Screen Ur Amphetamine Screen U Benzodiazepines Scrn Urine Cocaine Screen U Cannabinoids Screen Blood Type O Positive Blood Type Recheck Required Antibody Screen Negative 08/28/17 08/28/17 08/28/17 14:37 20:05 20:05 WBC RBC Hgb POC Hgb (Calc) Hct POC Hct MCV MCH MCHC RDW Plt Count MPV Neut % (Auto) Lymph % (Auto) [place] % (Auto) Eos % (Auto) Baso % (Auto) Neut # (Auto) Lymph # (Auto) [place] # (Auto) Eos # (Auto) Baso # (Auto) WBC Differential Differential Comment ESR PT INR APTT POC Sodium Sodium POC Potassium Potassium POC Chloride Chloride Carbon Dioxide Anion Gap POC BUN BUN Creatinine POC Creatinine Estimated GFR POC Glucose 100 Random Glucose Calcium Total Bilirubin AST ALT Alkaline Phosphatase Total Creatine Kinase CK-MB (CK-2) Troponin I Total Protein Albumin Triglycerides Cholesterol LDL Cholesterol, Calc HDL Cholesterol Cholesterol/HDL Ratio TSH Urine Color Yellow Urine Clarity Clear Urine pH 6.0 Ur Specific [place] 1.032 Urine Protein Negative Urine Glucose (UA) Negative Urine Ketones Negative Urine Occult Blood Small H Urine Nitrate Negative Urine Bilirubin Negative Urine Urobilinogen Less than 2 Ur Leukocyte Esterase Negative Urine RBC 1 Urine WBC Less than 1 Ur Squamous Epith Cells <1 Micro UA Comment Culture not ind Urine Culture Comments Culture not ind Urine Opiates Screen Neg Ur Barbiturates Screen Neg Ur Amphetamine Screen Neg U Benzodiazepines Scrn Neg Urine Cocaine Screen Neg U Cannabinoids Screen Neg Blood Type Blood Type Recheck Antibody Screen 08/29/17 08/29/17 08/29/17 07:22 07:22 07:22 WBC 6.2 RBC 4.79 Hgb 15.7 POC Hgb (Calc) Hct 45.4 POC Hct MCV 94.8 MCH 32.8 MCHC 34.6 RDW 13.3 Plt Count 295 MPV 8.0 Neut % (Auto) 58.4 Lymph % (Auto) 32.1 [place] % (Auto) 6.6 Eos % (Auto) 2.0 Baso % (Auto) 0.9 Neut # (Auto) 3.6 Lymph # (Auto) 2.0 [place] # (Auto) 0.4 Eos # (Auto) 0.1 Baso # (Auto) 0.1 WBC Differential . Differential Comment Auto diff final ESR PT INR APTT POC Sodium Sodium 139 POC Potassium Potassium 3.6 POC Chloride Chloride 103 Carbon Dioxide 27.0 Anion Gap 9 POC BUN BUN 13 Creatinine 1.19 POC Creatinine Estimated GFR 63 L POC Glucose Random Glucose 104 Calcium 9.0 Total Bilirubin 0.5 AST 33 ALT 53 Alkaline Phosphatase 76 Total Creatine Kinase CK-MB (CK-2) Troponin I Total Protein 8.1 Albumin 4.0 Triglycerides 169 H Cholesterol 196 LDL Cholesterol, Calc 117 H HDL Cholesterol 44.9 Cholesterol/HDL Ratio 4.36 TSH Urine Color Urine Clarity Urine pH Ur Specific [place] Urine Protein Urine Glucose (UA) Urine Ketones Urine Occult Blood Urine Nitrate Urine Bilirubin Urine Urobilinogen Ur Leukocyte Esterase Urine RBC Urine WBC Ur Squamous Epith Cells Micro UA Comment Urine Culture Comments Urine Opiates Screen Ur Barbiturates Screen Ur Amphetamine Screen U Benzodiazepines Scrn Urine Cocaine Screen U Cannabinoids Screen Blood Type Blood Type Recheck Antibody Screen - Imaging Impressions Cervical Spine MRI 08/28/17 00:00 CONCLUSION: 1. Mild disc bulges at C5-6 and C6-7 with mild flattening of the anterior thecal sac and no mass effect on the cord. 2. The cervical cord is unremarkable in appearance with no abnormal signal or enhancement. Head MRI 08/28/17 00:00 CONCLUSION: 1. Old tiny 3 mm focus of apparent restricted diffusion in the deep white matter of the left frontal lobe of concern for a small acute to subacute area of lacunar infarction. 2. Small old lacunar infarct in the deep white matter of the right parietal lobe. 3. Nonspecific white matter findings which could be related to chronic small vessel ischemic change. Chest X-Ray 08/28/17 13:56 CONCLUSION: Negative examination. Head CT 08/28/17 13:56 CONCLUSION: 1. No acute hemorrhage or mass effect. 2. Low attenuation areas which may represent areas of prior lacunar infarction or chronic small vessel ischemic change. Report was called by [Dr. Pineda to Dr. Ely at 1409 hours. ] Head CTA 08/28/17 13:56 CONCLUSION: 1. Negative study with no evidence of stenosis or occlusion. Neck CTA 08/28/17 13:56 CONCLUSION: 1. Mild bilateral plaquing in the carotid bulbs greater than right with less than 40% diameter stenosis. Carotid Doppler Study 08/29/17 00:00 CONCLUSION: Patent carotid arteries bilaterally. Antegrade flow involving both vertebral arteries. - Procedures none Assessment and Plan - Assessment (1) CVA (cerebral vascular accident) Code(s): I63.9 - Cerebral infarction, unspecified Status: Acute - Plan 57 year old male admitted with right sided numbness of the arm and forearm and hand. Right sided arm numbness Acute left lacunar CVA Follow symptoms Neurochecks Monitor BPs Neurology consulted. Recommended Plavix and DC aspirin in 3 days and consult cardiology for ELI. Follow-up echocardiogram, Holter monitor, hypercoagulable panel and LDL. Alcohol abuse. Counseled. Monitor for DTs. Will hold benzodiazepines for now because of stroke DVT Prophylaxis SCDs Discharge Planning: dc after ELI when cleared by cardiology and neurology
[2017-08-29] MEDS: Aspirin 325 MG Tablet PO SCH (10:24)
--- NOTE | 2017-08-29 11:05 | ECG ---
Date Performed: 08/28/2017 Time Performed: 13:45:40 PTAGE: 57 years EKG: Sinus rhythm MODERATE VOLTAGE CRITERIA FOR LVH, CONSIDER NORMAL VARIANT BORDERLINE ECG NO PREVIOUS TRACING DOCTOR: Edil Guerra Interpretating Date/Time 08/29/2017 11:04:06
--- NOTE | 2017-08-29 15:01 | MB ---
cc: Carlos Bartlett MD DATE: 08/29/2017 HISTORY OF PRESENT ILLNESS: Sherman is a very pleasant 87-year-old gentleman recently diagnosed with CVA. Dr. Johnson is requesting a ELI. The patient denies dysphagia, chest pain, shortness of breath, GI or bleeding, PND, orthopnea, syncope or dizziness. PAST MEDICAL HISTORY: As per History Of Present Illness. ALLERGIES: NONE. SOCIAL HISTORY: He does smoke. He does drink alcohol. MEDICATIONS: In the hospital: 1. Aspirin 325 daily. 2. Plavix 75 mg daily. 3. Temazepam 15 mg p.r.n. PHYSICAL EXAMINATION: VITAL SIGNS: Blood pressure 139/94, pulse 74, respiratory rate 14, temperature 99.0. GENERAL: He is alert and oriented x3, in no acute distress. NECK: Supple. No JVD or bruit. CARDIOVASCULAR: S1, S2. No murmurs, rubs or gallops. LUNGS: Coarse sounds bilaterally. ABDOMEN: Soft, nontender, nondistended, positive bowel sounds. EXTREMITIES: No lower extremity edema. LABORATORY DATA: White count 6.2, hemoglobin 15.7, hematocrit 45.4, platelet count 295. INR 1.0. Sodium 139, potassium 3.6, chloride 103, bicarbonate 27.0, BUN 30, creatinine 1.19, glucose 120. IMAGING STUDIES: Cervical spine MRI: Mild disk bulges at C5-C6 and C6-C7 with mild flattening of the anterior thecal sac. Cervical cord is unremarkable in appearance with no abnormal signal or enhancement. Head MRI: Old tiny 3 mm focus of apparent restricted diffusion in the deep white matter at the left frontal lobe of concern for small acute to subacute area of lacunar infarction, small old lacunar infarct in the deep white matter of the right parietal lobe, nonspecific white matter findings which could be related to chronic small vessel ischemic change. EKG: Normal sinus rhythm at 80 beats per minute, nonspecific ST-T wave changes. Head CT: No acute hemorrhage or mass effect. Low attenuation areas which may represent areas of prior lacunar infarction or chronic small vessel ischemic change. Head CTA: Negative study for no evidence of stenosis or occlusion. CTA: Mild bilateral plaquing in the carotid bulbs "greater than right" with less than 40% diameter stenosis. Carotid Doppler: Patent carotid arteries bilaterally. Antegrade flow in both vertebral arteries. FINAL DIAGNOSIS: Cerebrovascular accident. DISCUSSION: I discussed the risks and benefits of ELI with the patient and his significant other. He has no contraindications to ELI. Plan to schedule ELI on 08/30/2017 if Anesthesiology is available. MD BRAN Flores/SB , 02:33 PM , 03:01 PM
[2017-08-29] MEDS: Sod Chloride 0.9% Inj 1,000 ML IV.CONT SCH (20:53)
--- NOTE | 2017-08-30 07:06 | P.PNNEU ---
Subjective Subjective Comments: No acute events reported No headache No chest pain No dyspnea sr Active Medications: Active Medications Aspirin (Aspirin) 325 mg PO DAILY [facility] Stop: 08/31/17 06:00 Last Admin: 08/29/17 10:24 Dose: 325 mg Atorvastatin Calcium (Lipitor) 40 mg PO HS [facility] Last Admin: 08/29/17 20:53 Dose: 40 mg Clopidogrel Bisulfate (Plavix) 75 mg PO DAILY [facility] Last Admin: 08/29/17 10:24 Dose: 75 mg Enalaprilat (Vasotec Inj) 1.25 mg IV.PUSH Q4H PRN PRN Reason: For SBP > 220 or DBP > 120 Sodium Chloride (Ns Inj) 1,000 mls @ 70 mls/hr IV.CONT .[id number] [facility] Last Admin: 08/29/17 20:53 Dose: 70 mls/hr Sodium Chloride (Ns Flush) 2 ml IV.FLUSH PRN PRN PRN Reason: FLUSH AFTER USING IV ACCESS Temazepam (Restoril) 15 mg PO HS PRN PRN Reason: INSOMNIA Allergies/Adverse Reactions: Allergies Allergy/AdvReac Type Severity Reaction Status Date / Time No Known Allergies Allergy Unverified 08/28/17 13:56 Physical Exam Vital signs: Vital Signs 08/29/17 08:00 08/29/17 08:13 08/29/17 11:07 Temperature 97.9 F Pulse Rate 68 70 74 Respiratory Rate 14 Blood Pressure 165/100 H Pulse Oximetry 98 08/29/17 12:00 08/29/17 16:00 08/29/17 20:00 Temperature 99.0 F 98.7 F 98.7 F Pulse Rate 74 69 63 Respiratory Rate 14 16 16 Blood Pressure 139/94 H 132/82 143/99 H Pulse Oximetry 93 L 93 L 94 L 08/29/17 23:42 08/30/17 03:32 Temperature 98.5 F 98.4 F Pulse Rate 65 62 Respiratory Rate 17 17 Blood Pressure 153/96 H 135/91 H Pulse Oximetry 96 96 Intake & Output 08/29/17 08/30/17 08/30/17 18:59 06:59 18:59 Intake Total 1000 / 1000 Balance 1000 / 1000 Intake: IV 1000 / 1000 NS Inj 1,000 ML @ 70 mls/hr IV. 1000 / 1000 CONT .[id number] [facility] Rx#:[id number] Other: Date of Last Bowel Movement 08/29/17 Narrative: no new co 5/5 nl speech Objective Laboratory Results - last 24 hr 08/29/17 08/29/17 08/29/17 07:22 07:22 07:22 WBC 6.2 RBC 4.79 Hgb 15.7 Hct 45.4 MCV 94.8 MCH 32.8 MCHC 34.6 RDW 13.3 Plt Count 295 MPV 8.0 Neut % (Auto) 58.4 Lymph % (Auto) 32.1 [place] % (Auto) 6.6 Eos % (Auto) 2.0 Baso % (Auto) 0.9 Neut # (Auto) 3.6 Lymph # (Auto) 2.0 [place] # (Auto) 0.4 Eos # (Auto) 0.1 Baso # (Auto) 0.1 WBC Differential . Differential Comment Auto diff final Sodium 139 Potassium 3.6 Chloride 103 Carbon Dioxide 27.0 Anion Gap 9 BUN 13 Creatinine 1.19 Estimated GFR 63 L POC Glucose Random Glucose 104 Calcium 9.0 Total Bilirubin 0.5 AST 33 ALT 53 Alkaline Phosphatase 76 Total Protein 8.1 Albumin 4.0 Triglycerides Cholesterol LDL Cholesterol, Calc HDL Cholesterol Cholesterol/HDL Ratio RPR Nonreactive 08/29/17 08/29/17 08/29/17 07:22 13:00 17:56 WBC RBC Hgb Hct MCV MCH MCHC RDW Plt Count MPV Neut % (Auto) Lymph % (Auto) [place] % (Auto) Eos % (Auto) Baso % (Auto) Neut # (Auto) Lymph # (Auto) [place] # (Auto) Eos # (Auto) Baso # (Auto) WBC Differential Differential Comment Sodium Potassium Chloride Carbon Dioxide Anion Gap BUN Creatinine Estimated GFR POC Glucose 120 H 132 H Random Glucose Calcium Total Bilirubin AST ALT Alkaline Phosphatase Total Protein Albumin Triglycerides 169 H Cholesterol 196 LDL Cholesterol, Calc 117 H HDL Cholesterol 44.9 Cholesterol/HDL Ratio 4.36 RPR Review/Management - Review/Management Plan: imp left small acute cva on mri and several old small cva 2 on left 1 on right ctax2 neg fu echo pend have cards see for karin pend plavix for now dc asa in 3 days fu holter pend will need cardionet o/p hypercoag pend ldl inc on statin now can dc if karin neg and holter done and will needs cardcs to set up cardionet o/p
[2017-08-30 07:25] LABS: T4 (Thyroxine) 7.3 mcg/dL (4.5-12.1)
[2017-08-30] MEDS: Aspirin 325 MG Tablet PO SCH (10:05)
[2017-08-30] MEDS: Sod Chloride 0.9% Inj 1,000 ML IV.CONT SCH (10:29)
[2017-08-30] MEDS ORDERED: Lidocaine PF 1% Inj 5 ML Syringe INFILTRATN ONE (12:00)
--- NOTE | 2017-08-30 15:22 | P.PN ---
Subjective Interval history: F/U CVA. Doing ok pt aware not allowed to participate in any activities requiring concentration including training with guns. Physical Exam Vital signs: Vital Signs 08/29/17 16:00 08/29/17 20:00 08/29/17 23:42 Temperature 98.7 F 98.7 F 98.5 F Pulse Rate 69 63 65 Respiratory Rate 16 16 17 Blood Pressure 132/82 143/99 H 153/96 H Pulse Oximetry 93 L 94 L 96 08/30/17 03:32 08/30/17 08:36 08/30/17 11:47 Temperature 98.4 F 97.9 F 98 F Pulse Rate 62 66 72 Respiratory Rate 17 18 16 Blood Pressure 135/91 H 151/95 H 173/103 H Pulse Oximetry 96 96 98 Intake & Output 08/29/17 08/30/17 08/30/17 18:59 06:59 18:59 Intake Total 1000 / 1000 1000 / 1000 Balance 1000 / 1000 1000 / 1000 Intake: IV 1000 / 1000 1000 / 1000 NS Inj 1,000 ML @ 70 mls/hr IV. 1000 / 1000 1000 / 1000 CONT .[id number] [facility] Rx#:[id number] Other: Date of Last Bowel Movement 08/29/17 Narrative: GENERAL: Well-developed and well-nourished in no distress SKIN: Warm and dry. CARDIOVASCULAR: Regular rate and rhythm without murmurs, gallops, or rubs. RESPIRATORY: Breath sounds equal bilaterally. No accessory muscle use. GASTROINTESTINAL: Abdomen soft, non-tender, nondistended. MUSCULOSKELETAL: No cyanosis, or edema. BACK: Nontender without obvious deformity. No CVA tenderness. Results - Labs CBC & Chem 7: 08/29/17 07:22 08/29/17 07:22 Laboratory Results - last 24 hr 08/29/17 08/29/17 08/30/17 07:22 17:56 08:16 POC Glucose 132 H 103 Total Protein (PEP) 7.6 Vitamin B12 827 Thyroxine (T4) 7.3 08/30/17 13:00 POC Glucose 97 Total Protein (PEP) Vitamin B12 Thyroxine (T4) - Procedures for ELI Assessment and Plan - Assessment (1) CVA (cerebral vascular accident) Code(s): I63.9 - Cerebral infarction, unspecified Status: Acute - Plan 57 year old male admitted with right sided numbness of the arm and forearm and hand. Right sided arm numbness Acute left lacunar CVA. He is clinically stable Follow symptoms Neurochecks Monitor BPs Neurology consulted. Recommended Plavix and DC aspirin in 2 days and consult cardiology for ELI for today. Follow-up echocardiogram, Holter monitor, and hypercoagulable panel. LDL over 100 agrees to be on statin Alcohol abuse. Counseled. Monitor for DTs. Will hold benzodiazepines for now because of stroke DVT Prophylaxis SCDs Discharge Planning: dc after ELI when cleared by cardiology and neurology. Per Dr. Johnson, patient can be discharged home if ELI negative and Holter monitor completed. He will need outpatient 30 day monitor to be set up by cardiology if Holter is negative
[2017-08-30 15:41] LABS: Anti-Nuclear Antibody Screen Pos (Neg)
[2017-08-30] MEDS ORDERED: amLODIPine 5 MG Tablet PO SCH (17:00)
[2017-08-30 18:12] LABS: Hemoglobin A1c 5.5 % (4.3-6.0)
--- NOTE | 2017-08-30 19:09 | HM ---
Date Performed: 08/28/2017 Time Performed: 20:31:00 HOOKUP DATE: 08/28/17 08:31:00 PM Mon ANALYSIS START TIME: 08/28/2017 8:36:00 PM ANALYSIS END TIME: 08/29/2017 8:40:00 PM PATIENT AGE: 57 PATIENT HEIGHT PATIENT WEIGHT DRUG LIST PATIENT DIAGNOSIS: left shoulder pain TEST NARRATIVE: The patient's average heart rate was 70 BPM. No episodes of tachycardia wer e noted. No episodes of bradycardia were noted. No pauses exceeding 2.0 seconds were noted. 3 ventricular ectopics, which represented < 1% of the total beat count, were noted. The highest vent ricular ectopic frequency occurred from 08:00 PM to 09:00 PM Mon. During this time 2 VE(s) occurred. Ventricular ectopics were observed as 3 isolated beat(s) only. No couplets or runs were noted. 1 supraventricular ectopics, which represented < 1% of the total beat count, were noted. The highes t supraventricular ectopic frequency occurred from 05:00 PM to 06:00 PM Tue. During this time 1 SVE( s) occurred. Multiple episodes of ST depression (defined as -1.0 mm or more) were noted in chann el 1. The maximum depression of -1.3 mm occurred at 11:49:25 PM Mon. No episodes of ST depression ( defined as -1.0 mm or more) were noted in channel 2. No episodes of ST depression (defined as -1.0 m m or more) were noted in channel 3. NO DIARY ENTRIES TEST INTERPRETATION: Sinus rhythm OCCASIONAL PACS OCCASIONAL PVCS S igned by : Britton Harley
[2017-08-31 00:22] VITALS: O2SAT 96
[2017-08-31 08:05] VITALS: RESP 16; TEMP 98.2
--- NOTE | 2017-08-31 08:14 | P.DS ---
Date of admission: 08/28/17 16:25 Primary care physician: UNKNOWN Brief History from admission: Mr. Chicas is a 57 year old male. He came to the ER today with symptoms of left arm numbness and tingling which starts about at his left mid-arm proximally to his fingers distally. He has no prior history of known TIA or CVA. His family history is positive for [place] in his father. He is not an active smoker, but occasionally will smoke a cigar. He drinks 2-4 drinks of alcohol daily. 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 He had a febrile illness for 24-48 hours about a week ago. No other complaints. When seen, his symptoms are nearly resolved. DS: Diagnosis - Discharge Diagnosis (1) CVA (cerebral vascular accident) Status: Acute DS: Medications - Discharge Medications Prescriptions: amlodipine [Norvasc] 2.5 mg PO DAILY #20 tab atorvastatin 40 mg PO HS #30 tab clopidogrel [Plavix] 75 mg PO DAILY #30 tab DS: Summary Hospital Course: 57 year old male admitted with right sided numbness of the arm and forearm and hand. Right sided arm numbness Acute left lacunar CVA. He is clinically stable Follow symptoms Neurochecks Monitor BPs start low dose Norvasc 2.5 mg daily Neurology consulted. Recommended Plavix and DC aspirin. Consulted cardiology for ELI use was negative per report. Holter monitor unremarkable follow-up hypercoagulable panel. LDL over 100 agrees to be on statin Alcohol abuse. Counseled. Monitor for DTs. Will hold benzodiazepines for now because of stroke DVT Prophylaxis SCDs - Time Spent with Patient Total time spent providing and/or coordinating discharge services: - Quality: Stroke Last date observed well: 08/28/17 Last time observed well: 12:30 - Quality: VTE Deep Vein Thrombosis/Pulmonary Embolism Present on Admission: No Exam Vital signs: Vital Signs 08/30/17 08:36 08/30/17 09:00 08/30/17 11:47 Temperature 97.9 F 98 F Pulse Rate 66 67 72 Respiratory Rate 18 16 Blood Pressure 151/95 H 173/103 H Pulse Oximetry 96 98 08/30/17 16:51 08/30/17 19:29 08/30/17 19:31 Temperature 98.5 F 97.9 F Pulse Rate 62 77 Respiratory Rate 18 20 Blood Pressure 182/104 H 161/104 H 169/103 H Pulse Oximetry 98 95 08/30/17 21:35 08/31/17 00:00 08/31/17 04:00 Temperature 98.2 F 98.5 F Pulse Rate 73 65 64 Respiratory Rate 18 18 Blood Pressure 122/85 140/88 Pulse Oximetry 96 96 08/31/17 08:00 Temperature 98.2 F Pulse Rate Respiratory Rate 16 Blood Pressure 151/99 H Pulse Oximetry 96 Intake & Output 08/30/17 08/31/17 08/31/17 18:59 06:59 18:59 Intake Total 1550 / 1550 450 / 450 Balance 1550 / 1550 450 / 450 Intake: IV 1550 / 1550 450 / 450 NS Inj 1,000 ML @ 70 mls/hr IV. 1550 / 1550 CONT .[id number] [facility] Rx#:[id number] Other: Date of Last Bowel Movement 08/30/17 Narrative: GENERAL: Well-developed and well-nourished in no distress SKIN: Warm and dry. CARDIOVASCULAR: Regular rate and rhythm without murmurs, gallops, or rubs. RESPIRATORY: Breath sounds equal bilaterally. No accessory muscle use. GASTROINTESTINAL: Abdomen soft, non-tender, nondistended. MUSCULOSKELETAL: No cyanosis, or edema. BACK: Nontender without obvious deformity. No CVA tenderness. ay monitor to be set up by cardiology if Holter is negative Results Procedures completed during hospitalization: for ELI Labs on day of discharge: Labs from last 24 hours 08/30/17 08/30/17 08/30/17 13:00 08:16 06:32 POC Glucose 97 103 Hemoglobin A1c 5.5 BALTAZAR Screen BALTAZAR Titer BALTAZAR Pattern BALTAZAR Interpretation Beta-2-GPI IgG Ab Beta-2-GPI IgA Ab Beta-2-GPI IgM Ab Phosphatidylserine IgG Phosphatidylserine IgA Phosphatidylserine IgM Anti-Phospholipid Intrp Anti-Cardiolipin IgG Ab Anti-Cardiolipin IgA Ab Anti-Cardiolipin IgM Ab RPR 08/29/17 08/29/17 07:22 07:22 POC Glucose Hemoglobin A1c BALTAZAR Screen Pos H BALTAZAR Titer Pending BALTAZAR Pattern Pending BALTAZAR Interpretation Pending Beta-2-GPI IgG Ab Pending Beta-2-GPI IgA Ab Pending Beta-2-GPI IgM Ab Pending Phosphatidylserine IgG Pending Phosphatidylserine IgA Pending Phosphatidylserine IgM Pending Anti-Phospholipid Intrp Pending Anti-Cardiolipin IgG Ab Pending Anti-Cardiolipin IgA Ab Pending Anti-Cardiolipin IgM Ab Pending RPR Nonreactive - Impressions ITS Impressions Cervical Spine MRI 08/28/17 00:00 CONCLUSION: 1. Mild disc bulges at C5-6 and C6-7 with mild flattening of the anterior thecal sac and no mass effect on the cord. 2. The cervical cord is unremarkable in appearance with no abnormal signal or enhancement. Head MRI 08/28/17 00:00 CONCLUSION: 1. Old tiny 3 mm focus of apparent restricted diffusion in the deep white matter of the left frontal lobe of concern for a small acute to subacute area of lacunar infarction. 2. Small old lacunar infarct in the deep white matter of the right parietal lobe. 3. Nonspecific white matter findings which could be related to chronic small vessel ischemic change. Chest X-Ray 08/28/17 13:56 CONCLUSION: Negative examination. Head CT 08/28/17 13:56 CONCLUSION: 1. No acute hemorrhage or mass effect. 2. Low attenuation areas which may represent areas of prior lacunar infarction or chronic small vessel ischemic change. Report was called by [Dr. Pineda to Dr. Ely at 1409 hours. ] Head CTA 08/28/17 13:56 CONCLUSION: 1. Negative study with no evidence of stenosis or occlusion. Neck CTA 08/28/17 13:56 CONCLUSION: 1. Mild bilateral plaquing in the carotid bulbs greater than right with less than 40% diameter stenosis. Carotid Doppler Study 08/29/17 00:00 CONCLUSION: Patent carotid arteries bilaterally. Antegrade flow involving both vertebral arteries. Discharge Plan - Discharge Disposition Patient Disposition: Discharge Home - Discharge Condition Condition: Stable - Discharge Order Discharge Orders: Discharge Order (Routine); Ordered 08/31/17 Ordered By: Jonny Mckenna Cardiology Clear for Discharge (Routine); Ordered 08/30/17 Ordered By: Carlos Bartlett - Physicians Team Primary Care Provider: UNKNOWN, Attending Provider: Jonny Mckenna Other Providers: Andrew Molina MD ; Carlos Bartlett MD
--- NOTE | 2017-08-31 08:23 | P.PNNEU ---
Subjective Subjective Comments: bp up sr Active Medications: Active Medications Amlodipine Besylate (Norvasc) 2.5 mg PO DAILY [facility] Atorvastatin Calcium (Lipitor) 40 mg PO HS [facility] Last Admin: 08/30/17 20:40 Dose: 40 mg Clopidogrel Bisulfate (Plavix) 75 mg PO DAILY [facility] Last Admin: 08/30/17 10:05 Dose: Not Given Enalaprilat (Vasotec Inj) 1.25 mg IV.PUSH Q6H PRN PRN Reason: SBP>180, DBP>95 Last Admin: 08/30/17 17:20 Dose: 1.25 mg Miscellaneous (Pill Splitter) 1 each OTHER UNSCH PRN PRN Reason: SEE LABEL COMMENTS Sodium Chloride (Ns Flush) 2 ml IV.FLUSH PRN PRN PRN Reason: FLUSH AFTER USING IV ACCESS Temazepam (Restoril) 15 mg PO HS PRN PRN Reason: INSOMNIA Allergies/Adverse Reactions: Allergies Allergy/AdvReac Type Severity Reaction Status Date / Time No Known Allergies Allergy Unverified 08/28/17 13:56 Physical Exam Vital signs: Vital Signs 08/30/17 08:36 08/30/17 09:00 08/30/17 11:47 Temperature 97.9 F 98 F Pulse Rate 66 67 72 Respiratory Rate 18 16 Blood Pressure 151/95 H 173/103 H Pulse Oximetry 96 98 08/30/17 16:51 08/30/17 19:29 08/30/17 19:31 Temperature 98.5 F 97.9 F Pulse Rate 62 77 Respiratory Rate 18 20 Blood Pressure 182/104 H 161/104 H 169/103 H Pulse Oximetry 98 95 08/30/17 21:35 08/31/17 00:00 08/31/17 04:00 Temperature 98.2 F 98.5 F Pulse Rate 73 65 64 Respiratory Rate 18 18 Blood Pressure 122/85 140/88 Pulse Oximetry 96 96 08/31/17 08:00 Temperature 98.2 F Pulse Rate Respiratory Rate 16 Blood Pressure 151/99 H Pulse Oximetry 96 Intake & Output 08/30/17 08/31/17 08/31/17 18:59 06:59 18:59 Intake Total 1550 / 1550 450 / 450 Balance 1550 / 1550 450 / 450 Intake: IV 1550 / 1550 450 / 450 NS Inj 1,000 ML @ 70 mls/hr IV. 1550 / 1550 CONT .[id number] [facility] Rx#:[id number] Other: Date of Last Bowel Movement 08/30/17 Narrative: moves all well nl speech Objective Laboratory Results - last 24 hr 08/29/17 08/30/17 08/30/17 07:22 06:32 13:00 POC Glucose 97 Hemoglobin A1c 5.5 SHAZIA Screen Pos H RPR Nonreactive Review/Management - Review/Management Plan: imp left small acute cva on mri and several old small cva 2 on left 1 on right ctax2 neg fu echo pend have cards see for karin pend plavix for now dc asa in 3 days fu holter pend will need cardionet o/p hypercoag pend ldl inc on statin now can dc if karin neg and holter done and will needs cardcs to set up cardionet o/p 08/31/17 sr holter neg karin neg acc to dr pantoja hyper and shazia titer pend plavix bp control needs stress test and cardionet and maybe loop dr pratt
[2017-08-31] MEDS ORDERED: amLODIPine 5 MG Tablet PO SCH (09:00)
[2017-08-31 09:55] VITALS: BP 167/105; PULSE 62
[2017-09-01 10:10] LABS: Factor V Leiden Mutation Negative (Negative)
--- NOTE | 2017-09-01 11:27 | ECHRPT ---
Indication: CONCLUSIONS 1.) Normal left ventricular size, wall thickness, ef=60% 2.) left atrial appendage normal 3.) Saline contrast bubble study into the right atrium is negative for a shunt 4.) Ascending and descending thoracic aorta is normal 5.) trace mitral regurgitation BP: / HR: Rhythm: Technical Quality: Medications Complications Proc. Components Carlos Bartlett MD, FAC, [facility] [place] Edited by: claim administrator claim administrator (Electronically Signed) Final Date:31 August 2017 17:56 Amended: 01 September 2017 11:26
== END 2017-08-31 12:59 | disposition home or self-care (01) ==
LOC: NEPC 13:18 → NEDA 16:25 → NEPFCDU 17:20
PROVIDERS: ADMIT Internal Medicine; ATTEND Internal Medicine